=== PATIENT | male | born 1980 | race Two or more races ===

== ENCOUNTER 2023-05-28 08:51 | Inpatient (IN) | payer OTHER ==
[~2023-05-28] VITALS: Ht 188 cm; Wt 88.5 kg
--- NOTE | 2023-05-28 09:10 | NUR ---
PT CAME IN DUE TO WOUND BACK OF HEAD AFTER FALLING, LOC NOTED 1HR AGO. PUT ON BED COMFORTABLY ATTACHED TO MONITORS. AOX4, NOT IN CR DISTRESS, AMBULATORY. CHANGED TO GOWN
--- NOTE | 2023-05-28 09:15 | NUR ---
DR MARIE AT BED SIDE FOR EVAL
[2023-05-28] MEDS ORDERED: IV NS 0.9% 500 ML BAG IV ONE (09:30)
[2023-05-28] MEDS ORDERED: LIDOCAINE 1%-EPI 1:100,000 20 ML VIAL ONE (09:33)
--- NOTE | 2023-05-28 09:36 | NUR ---
ADITI COLLECTED , SENT TO LAB
--- NOTE | 2023-05-28 09:45 | NUR ---
DR MARIE AT BEDSIDE ATTENDING TO PT'S WOUND
[2023-05-28 09:52] LABS: BASOPHILS # (AUTO) 0.1 K/uL (0.0-0.2); BASOPHILS % (AUTO) 0.5 % (0.0-2.0); EOSINOPHILS % (AUTO) 2.6 % (0.0-6.0); HEMATOCRIT 42 % (39-51); HEMOGLOBIN 13.9 g/dL (13.5-17.5); LYMPHOCYTES # (AUTO) 2.8 K/uL (0.8-4.8); LYMPHOCYTES % (AUTO) 21.6 % (20.0-44.0); MEAN CORPUSCULAR HGB CONC 33 g/dl (31.0-36.0); MEAN CORPUSCULAR VOLUME 86 fL (80-96); MONOCYTES # (AUTO) 0.9 K/uL (0.1-1.30); NEUTROPHILS # (AUTO) 8.9 K/uL (1.8-8.9); NEUTROPHILS % (AUTO) 68.3 % (43.0-81.0); PLATELET COUNT (AUTO) 120 K/uL (150-450); WHITE BLOOD COUNT (AUTO) 13.1 K/uL (4.3-11.0)
--- NOTE | 2023-05-28 10:01 | NUR ---
EDI PROGRAMMER AT BEDSIDE
--- NOTE | 2023-05-28 10:05 | NUR ---
PT TO CT SCAN VIA BANNER
[2023-05-28 10:47] LABS: CALCIUM, SERUM 9.4 mg/dL (8.5-10.1); CARBON DIOXIDE 25 mmol/L (21-32); CHLORIDE 100 mmol/L (98-107); CREATININE 1.1 mg/dL (0.6-1.3); GLUCOSE 103 mg/dL (74-106); POTASSIUM 3.6 mmol/L (3.5-5.1); SODIUM SERUM 138 mmol/L (136-145); UREA NITROGEN, BLOOD 22 mg/dL (7-18)
[2023-05-28 10:53] LABS: ALANINE AMINOTRANSFERASE 27 U/L (12-78); ALBUMIN 4.1 g/dL (3.4-5.0); ALKALINE PHOSPHATASE 92 U/L (46-116); ASPARTATE AMINOTRANSFERASE 19 U/L (15-37); BILIRUBIN,DIRECT 0.2 mg/dL (0.0-0.2); BILIRUBIN,TOTAL 1.3 mg/dL (0.2-1.0); TOTAL PROTEIN, SERUM 8.1 g/dL (6.4-8.2)
--- NOTE | 2023-05-28 11:10 | NUR ---
DR LOJA AT BEDSIDE EXPLAINING RESULT OF TROPONIN
--- NOTE | 2023-05-28 11:18 | NUR ---
PT WAS ALLOWED TO GET SOMETHING FROM HIS CAR, PROMISED TO COME BACK, DR MARIE APPROVED.
--- NOTE | 2023-05-28 11:23 | NUR ---
PT BACK ON BED, AT BEDSIDE
--- NOTE | 2023-05-28 11:36 | NUR ---
MOVE SHEET SUBMITTED.
[2023-05-28] MEDS ORDERED: LORAZEPAM 1 MG TABLET ONE (11:43)
[2023-05-28] MEDS ORDERED: MELO-107 PO (11:50)
[2023-05-28] MEDS ORDERED: CARI3CAP PO (11:50)
[2023-05-28] MEDS ORDERED: HYDR-500 PO (11:50)
[2023-05-28] MEDS ORDERED: QUET100T PO (11:50)
[2023-05-28] MEDS ORDERED: CLON0.1T PO (11:50)
[2023-05-28] MEDS ORDERED: LORAZEPAM 1 MG TABLET PO ONE (12:00)
--- NOTE | 2023-05-28 13:26 | NUR ---
REPORT GIVEN TO LIA DECKER FOR JAISON
--- NOTE | 2023-05-28 13:35 | NUR ---
ECHO CARDIOGRAM TECH AT BEDSIDE
--- NOTE | 2023-05-28 14:00 | NUR ---
NEW PATIENT ARRIVED FROM ER AT 1400 VIA GURNEY, PATIENT IS AMBULATORY AT BED SIDE. PATIENT HAD A FALL IN HIS BEDROOM WHICH CAUSED HIM LACERATION ON BACK OF HIS HEAD 5 ILEANA PLACED ON THE LACERATION AREA IN THE ER, SOME SCRATCHES ON PATIENT'S SHOULDER PHOTO ALREADY TAKEN AND PLACED IN PATIENT'S CHART. WILL MONITOR THE PATIENT THROUGHOUT THE SHIFT.
[2023-05-28 16:00] VITALS: BP 119/79; TEMP 98.3
[2023-05-28] MEDS ORDERED: ENOXAPARIN SODIUM 40 MG/0.4 ML DISP.SYRIN SQ SCH (16:30)
[2023-05-28] MEDS ORDERED: ACETAMINOPHEN 325 MG TABLET PO PRN (16:30)
[2023-05-28] MEDS ORDERED: ONDANSETRON HCL/PF 4 MG/2 ML VIAL IVP PRN (16:30)
[2023-05-28] MEDS ORDERED: Z GUARD REMEDY 4 OZ OINT TP PRN (16:30)
[2023-05-28] MEDS: IV LR 1000 ML 1,000 ML IV SCH (16:34)
[2023-05-28] MEDS: METOPROLOL TARTRATE 25 MG TABLET PO SCH ×2 (16:34→20:28)
[2023-05-28] MEDS: ALPRAZOLAM 1 MG TABLET PO SCH ×2 (16:34→16:38)
--- NOTE | 2023-05-28 16:39 | NUR ---
THERE WA TWO ORDER FRO XANAX I SCANNED ONE XANAX AT 1634 AND THERE WAS ANOTHER ONE FOR 1700 O'CLOCK I CALLED PHARMACY THEY SAID NON ADMINISTER THE 1700 O'CLOCK ONE.
[2023-05-28 16:55] LABS: CHOLESTEROL 164 mg/dL (<200); HDL CHOLESTEROL 59 mg/dL (40-60); LDL 82 mg/dL (0-99); TRIGLYCERIDES 64 mg/dL (30-150)
--- NOTE | 2023-05-28 18:59 | NUR ---
RN CLOSING NOTES PATIENT IN BED AMBULATORY ON ROOM AIR O2 SAT 97%. SINUS TACHYCARDIA 113. NO SOB OR DISTRESS NOTED. PATIENT T TROPONIN LEVEL TRENDING DOWN LAST WAS CHECKED AT 1600 O'CLOCK 1261. PATIENT KEPT CLEAN AND DRY ALL DUE MEDS GIVEN. PATIENT HAS A REGULAR DIET DINNER IS ALREADY SERVED. RAC G#20 LR 100 ML/HR RUNNING IV SITE INTACT AND PATENT. PATIENT USES TOILET AMBULATORY. ALL SAFETY PRECAUTIONS IMPLEMENTED. MY RECOMMENDATION TO ASSIST THE PATIENT WHEN HE IS USES RESTROOM TO PREVENT FALLING DOWN SINCE HE HAD FALL AT HOME AND HAS A LACERATION WITH 5 ILEANA ON BACK OF HIS HEAD. WILL ENDORSE HIM TO THE CRM SPECIALIST NURSE FOR JAISON.
--- NOTE | 2023-05-28 19:20 | NUR ---
CHANNEL CEMENTER INSOLE MACHINE OPENING NOTES RECEIVED PATIENT SITTING UP IN BED, WITH AT THE BEDSIDE. AMBULATORY, NEEDS ASSISTANCE WHEN GOING TO THE BATHROOM, TO PREVENT RISK OF FALLING. ON ROOM AIR, O2 SAT 97%. WITH COMPONENT DESIGN ENGINEER CURRENT READING SINUS TACHYCARDIA 113. NO SOB OR DISTRESS NOTED. IV ACCESS AT RAC G#20 INTACT, PATENT AND INFUSING WELL, RUNNING LR 1L @100CC/HR. SAFETY PRECAUTIONS MAINTAINED: BED LOCKED IN LOWEST POSITION, RAILS UPX2, TRAY AND CALL LIGHT WITHIN EASY REACH. WILL CONTINUE TO ASSIST AND MONITOR.
[2023-05-28 20:00] VITALS: BP 108/81; TEMP 98
[2023-05-28] MEDS: HYDROCODONE/APAP 5/325MG TABLET PO PRN (20:29)
--- NOTE | 2023-05-28 20:29 | NUR ---
RN NOTES PATIENT COMPLAINED OF PAIN ALL OVER HIS HEAD AND LEGS, 10/10 PER PAIN SCALE. NORCO PRN GIVEN.
--- NOTE | 2023-05-28 21:29 | NUR ---
RN NOTES PAIN REASSESSED. 0/10 PER PAIN SCALE. MADE COMFORTABLE.
[2023-05-28] MEDS: ATORVASTATIN 10 MG TABLET PO SCH (21:48)
[2023-05-29] VITALS (14 sets, daily range): BP systolic 97–120; BP diastolic 63–87; TEMP 97.7–98.8; O2SAT 96–98
[2023-05-29] MEDS: IV LR 1000 ML 1,000 ML IV SCH (02:20)
[2023-05-29] MEDS: HYDROCODONE/APAP 5/325MG TABLET PO PRN ×4 (02:31→21:16)
--- NOTE | 2023-05-29 02:36 | NUR ---
RN NOTES PATIENT COMPLAINED OF PAIN ON HIS HEAD, 9/10 PER PAIN SCALE. NORCO PRN GIVEN.
[2023-05-29 05:48] LABS: BASOPHILS # (AUTO) 0.1 K/uL (0.0-0.2); BASOPHILS % (AUTO) 0.9 % (0.0-2.0); EOSINOPHILS % (AUTO) 5.4 % (0.0-6.0); HEMATOCRIT 40 % (39-51); HEMOGLOBIN 13.1 g/dL (13.5-17.5); LYMPHOCYTES # (AUTO) 3.8 K/uL (0.8-4.8); LYMPHOCYTES % (AUTO) 38.1 % (20.0-44.0); MEAN CORPUSCULAR HGB CONC 33 g/dl (31.0-36.0); MEAN CORPUSCULAR VOLUME 86 fL (80-96); MONOCYTES # (AUTO) 0.9 K/uL (0.1-1.30); MONOCYTES % (AUTO) 8.6 % (2.0-12.0); NEUTROPHILS # (AUTO) 4.7 K/uL (1.8-8.9); PLATELET COUNT (AUTO) 113 K/uL (150-450)
[2023-05-29 06:13] LABS: CALCIUM, SERUM 8.9 mg/dL (8.5-10.1); PHOSPHORUS 3.4 mg/dL (2.5-4.9); POTASSIUM 4.2 mmol/L (3.5-5.1)
--- NOTE | 2023-05-29 06:44 | NUR ---
CHOP SAW OPERATOR CLOSING NOTES PATIENT AWAKE IN BED, A/O X4. AMBULATORY, NEEDS ASSISTANCE WHEN GOING TO THE BATHROOM, TO PREVENT RISK OF FALLING. ON ROOM AIR, O2 SAT 97%. WITH REVENUE ANALYST, CURRENT READING SINUS RHYTHM HR 69. NO SOB OR DISTRESS NOTED. IV ACCESS AT RAC G#20 INTACT, PATENT AND INFUSING WELL, RUNNING LR 1L @100CC/HR. ALL DUE MEDS GIVEN, NEEDS ATTENDED. SAFETY PRECAUTIONS MAINTAINED: BED LOCKED IN LOWEST POSITION, RAILS UPX2, TRAY AND CALL LIGHT WITHIN EASY REACH. WILL ENDORSE TO AM SHIFT NURSE FOR JAISON.
--- NOTE | 2023-05-29 07:30 | NUR ---
NEUROLOGY TECH OPENING NOTES RECEIVED PATIENT AWAKE IN BED, A/O X4. AMBULATORY, NEEDS ASSISTANCE WHEN GOING TO THE BATHROOM, TO PREVENT RISK OF FALLING. ON ROOM AIR, O2 SAT >95%, NO SOB NOTED, RESPIRATION EVEN AND UNLABORED. WITH CAREER COACH, CURRENT READING SINUS RHYTHM HR 70'S. IV ACCESS AT RAC G#20 INTACT, PATENT AND INFUSING WELL, RUNNING LR 1L @100CC/HR. A SAFETY PRECAUTIONS MAINTAINED: BED LOCKED IN LOWEST POSITION, RAILS UPX2, TRAY AND CALL LIGHT WITHIN EASY REACH. WILL CONTINUE PLAN OF CARE.
[2023-05-29] MEDS: METOPROLOL TARTRATE 25 MG TABLET PO SCH ×2 (08:51→21:17)
[2023-05-29] MEDS: ALPRAZOLAM 1 MG TABLET PO SCH ×2 (08:51→17:27)
[2023-05-29] MEDS: ASPIRIN EC 81 MG TABLET.DR PO SCH (08:51)
--- NOTE | 2023-05-29 10:41 | NUR ---
PATIENT OUT FOR CT ANGIOGRAM OF THE HEART WITH CONTRAST
--- NOTE | 2023-05-29 10:59 | NUR ---
RECEIVED NEW ORDER FROM MAKENZIE ARIAS DC IV FLUIDS, NOTED AND CARRIED OUT.
[2023-05-29] MEDS ORDERED: NITROGLYCERIN 0.4 MG/TAB BOTTLE SL PRN (11:00)
[2023-05-29] MEDS ORDERED: METOPROLOL TARTRATE INJ 5 MG/5 ML AMPUL IVP PRN (11:00)
[2023-05-29] MEDS ORDERED: METOPROLOL TARTRATE INJ 5 MG/5 ML AMPUL ONE (11:03)
[2023-05-29] MEDS ORDERED: NITROGLYCERIN 0.4 MG/TAB BOTTLE ONE (11:04)
[2023-05-29] MEDS ORDERED: IOHEXOL-350 100 ML VIAL IV ONE (11:14)
[2023-05-29] MEDS ORDERED: CT SWABBABLE VALVE TRANS SET 1 EA INFUS.SET MC ONE (11:14)
[2023-05-29] MEDS ORDERED: IV NS 0.9% 250 ML IV ONE (11:14)
--- NOTE | 2023-05-29 12:11 | NUR ---
RECEIVED NEW ORDER FROM AISSATOU BANEGAS DNP DUPPLEX VENOUS ULTRASOUND OF BILATERAL LOWER EXTREMITY TO CHECK FOR DVT, NOTED AND CARRIED OUT
--- NOTE | 2023-05-29 12:33 | NUR ---
RECEIVED NEW ORDER FROM AISSATOU BANEGAS TO TRANSFER PATIENT TO ICU FOR CLOSE MONITORING, NOTED AND CARRIED OUT. INFORMED CHARGE NURSE SHAD AND MANAGER ENVIRONMENTAL SERVICES BAN
--- NOTE | 2023-05-29 12:40 | NUR ---
PT ARRIVED IN ICU VIA BED. BEDSIDE REPORT RECEIVED FROM NELIA CHUA RN. PT ALERT, OX4, AT BEDSIDE, VERY SUPPORTIVE. HEPARIN GTT TO BE STARTED ONCE AVAILABLE FROM PHARMACY. BILAT LOWER EXTREMITY DOPPLEERS ABOUT TO START. PT C/O HEADACHE FROM HITTING HIS HEAD WHEN HE FELL PRIOR TO ADMISSION. PT HAS 5 ILEANA IN BACK OF HEAD. PT CHECKED ON FREQUENTLY AND PRN BY NURSING STAFF.
--- NOTE | 2023-05-29 12:40 | NUR ---
TRANSFERRED PATIENT VIA ACLS TO ICU TO ROOM 259, AT THE BEDSIDE, ALL PERSONAL BELONGINGS BROUGHT WITH THE PATIENT. GAVE REPORT TO HILARIA DECKER.
[2023-05-29] MEDS ORDERED: ENOXAPARIN SODIUM 100 MG/ML DISP.SYRIN SQ STA (13:29)
[2023-05-29] MEDS: IV NS 0.9% 1,000 ML IV PRN ×2 (13:45→21:16)
[2023-05-29] MEDS: HEPARIN INFUSION/D5W 500 ML IV PRN (13:57)
[2023-05-29] MEDS ORDERED: HEPARIN SODIUM, PORCINE 5000 UNITS/1 ML VIAL IV ONE (14:00)
--- NOTE | 2023-05-29 18:38 | NUR ---
END OF SHIFT NOTE: HEPARIN GTT WAS STARTED PER MD ORDERS. NEXT PTT IS DUE AT 1999. DR MERINO WAS HERE AND TOLD PATIENT HE DOES NOT NEED TO GET AN IVC FILTER OR TRANSFER TO HIGHER LEVEL OF CARE SINCE HE IS OTHERWISE HEALTHY. ORDER GIVEN TO RESUME DIET. PER DR MERINO HE WILL TALK TO AISSATOU BANEGAS ABOUT PUTTING ORDERS IN TO TRANSITION PT OFF OF HEPARIN GTT AND ONTO A SQ BLOOD THINNER. DR MERINO ALSO INFORMED PATIENT AND HIS THAT HE WILL CONSULT A APPRENTICE TO TRY TO FIGURE OUT WHY LARGE BLOOD CLOTS ARE FORMING IN PATIENT. NO NEW ORDERS RECEIVED AT THIS TIME TO TURN OFF HEPARIN GTT. PT CHECKED ON HOURLY AND PRN BY NURSING STAFF.
[2023-05-29] MEDS: ATORVASTATIN 10 MG TABLET PO SCH (21:16)
--- NOTE | 2023-05-29 21:30 | NUR ---
ICU/RN: PTT RESULTS 88.9 TITRATED DRIP DOWN BY 200UNITS/HOUR PER PROTOCOL. WILL RECHECK PTT IN 6 HOURS.
[2023-05-30] VITALS (23 sets, daily range): BP systolic 94–127; BP diastolic 56–104; TEMP 98.2–98.5; O2SAT 95–98
[2023-05-30] MEDS: HYDROCODONE/APAP 5/325MG TABLET PO PRN ×3 (03:12→18:14)
[2023-05-30 03:54] LABS: BASOPHILS # (AUTO) 0.1 K/uL (0.0-0.2); BASOPHILS % (AUTO) 0.6 % (0.0-2.0); EOSINOPHILS % (AUTO) 4.5 % (0.0-6.0); HEMATOCRIT 39 % (39-51); HEMOGLOBIN 12.9 g/dL (13.5-17.5); LYMPHOCYTES # (AUTO) 4.3 K/uL (0.8-4.8); LYMPHOCYTES % (AUTO) 39.3 % (20.0-44.0); MEAN CORPUSCULAR HGB CONC 33 g/dl (31.0-36.0); MEAN CORPUSCULAR VOLUME 86 fL (80-96); MONOCYTES # (AUTO) 0.7 K/uL (0.1-1.30); MONOCYTES % (AUTO) 6.6 % (2.0-12.0); NEUTROPHILS # (AUTO) 5.4 K/uL (1.8-8.9); PLATELET COUNT (AUTO) 142 K/uL (150-450); RED BLOOD CELL COUNT(AUTO) 4.55 MIL/uL (4.5-6.0)
[2023-05-30 04:08] LABS: CALCIUM, SERUM 8.8 mg/dL (8.5-10.1); CREATININE 0.9 mg/dL (0.6-1.3); MAGNESIUM 1.8 mg/dL (1.8-2.4); PHOSPHORUS 4.5 mg/dL (2.5-4.9); POTASSIUM 3.4 mmol/L (3.5-5.1)
[2023-05-30] MEDS: HEPARIN INFUSION/D5W 500 ML IV PRN (05:17)
[2023-05-30] MEDS: IV NS 0.9% 1,000 ML IV PRN ×3 (05:17→21:53)
--- NOTE | 2023-05-30 07:30 | NUR ---
OPENING NOTE: REPORT RECEIVED FROM ORLIN DECKER. ORDERS AND LABS REVIEWED DURING REPORT. PER REPORT DR HELM HAS ALREADY MADE ROUNDS AND STATED PT WILL CONTINUE ON HEPARIN GTT AND NOT TRANSITION TO SQ BLOOD THINNERS AT THIS TIME. ALSO PER REPORT PT IS THERAPUTIC, NEXT PTT IS IN THE AM. RIGHT AC IV SITE IS BLEEDING AT THE SITE, IV IS NOT LEAKING. ORDER RECEIVED FOR MIDLINE INSERTION TO BE ABLE TO MAINTAIN IV SITE. PT CHECKED ON HOURLY AND PRN BY NURSING STAFF.
[2023-05-30] MEDS ORDERED: POTASSIUM CHLORIDE 20 MEQ TAB.PRT.SR PO SCH (08:00)
[2023-05-30] MEDS: ALPRAZOLAM 1 MG TABLET PO SCH ×2 (08:45→17:07)
[2023-05-30] MEDS: ASPIRIN EC 81 MG TABLET.DR PO SCH (08:46)
[2023-05-30] MEDS: METOPROLOL TARTRATE 25 MG TABLET PO SCH ×2 (08:46→21:00)
[2023-05-30] MEDS ORDERED: IOHEXOL-300 100 ML VIAL IV ONE (10:57)
[2023-05-30] MEDS ORDERED: CT SWABBABLE VALVE TRANS SET 1 EA INFUS.SET MC ONE (10:58)
--- NOTE | 2023-05-30 11:58 | NUR ---
CT OF ABD AND PELVIS WITH CONTRAST DONE WITHOUT DIFFICULTY
[2023-05-30] MEDS ORDERED: APIXABAN 2.5 MG TABLET PO ONE (16:30)
[2023-05-30] MEDS ORDERED: APIXABAN 5 MG TABLET PO SCH ×2 (17:00)
--- NOTE | 2023-05-30 18:57 | NUR ---
END OF SHIFT NOTE: HEPARIN GTT WAS DC'D 1 HOUR AFTER ELIQUIS STARTED PER MD ORDERS. PT HAD CT ABD/PELVIS WITH CONTRAST TODAY PER MD ORDERS. PER DR AISSATOU BANEGAS PT WILL POSSIBLY BE DISCHARGED ON THURSDAY. CONSULT FOR HEMATOLOGY STILL PENDING. PT CHECKED ON HOURLY AND PRN BY NURSING STAFF.
[2023-05-30] MEDS: ATORVASTATIN 10 MG TABLET PO SCH (21:06)
[2023-05-31] VITALS (23 sets, daily range): BP systolic 96–129; BP diastolic 69–101; TEMP 98.1–98.8; O2SAT 93–100
[2023-05-31] MEDS: HYDROCODONE/APAP 5/325MG TABLET PO PRN ×4 (00:17→18:10)
[2023-05-31] MEDS: IV NS 0.9% 1,000 ML IV PRN ×3 (05:43→22:04)
[2023-05-31 06:10] LABS: BASOPHILS # (AUTO) 0.1 K/uL (0.0-0.2); BASOPHILS % (AUTO) 0.6 % (0.0-2.0); EOSINOPHILS % (AUTO) 4.4 % (0.0-6.0); HEMATOCRIT 36 % (39-51); HEMOGLOBIN 12.1 g/dL (13.5-17.5); LYMPHOCYTES # (AUTO) 2.5 K/uL (0.8-4.8); LYMPHOCYTES % (AUTO) 27.4 % (20.0-44.0); MEAN CORPUSCULAR HGB CONC 33 g/dl (31.0-36.0); MEAN CORPUSCULAR VOLUME 85 fL (80-96); MONOCYTES # (AUTO) 0.8 K/uL (0.1-1.30); MONOCYTES % (AUTO) 8.4 % (2.0-12.0); NEUTROPHILS # (AUTO) 5.5 K/uL (1.8-8.9); NEUTROPHILS % (AUTO) 59.2 % (43.0-81.0); PLATELET COUNT (AUTO) 168 K/uL (150-450); RED BLOOD CELL COUNT(AUTO) 4.26 MIL/uL (4.5-6.0); WHITE BLOOD COUNT (AUTO) 9.3 K/uL (4.3-11.0)
[2023-05-31 06:21] LABS: CALCIUM, SERUM 8.4 mg/dL (8.5-10.1); CREATININE 0.8 mg/dL (0.6-1.3); MAGNESIUM 1.8 mg/dL (1.8-2.4); POTASSIUM 3.4 mmol/L (3.5-5.1)
[2023-05-31 06:37] LABS: THYROID STIMULATING HORMONE 1.432 uIU/mL (0.358-3.74)
[2023-05-31 06:44] LABS: C-REACTIVE PROTEIN 1.4 mg/dL (0.0-0.9)
--- NOTE | 2023-05-31 07:30 | NUR ---
OPENING NOTE: REPORT RECEIVED FROM ORLIN DECKER. ORDERS AND LABS REVIEWED DURING REPORT. PT IS ALERT OX3. DENIES ANY SOB OR CHEST PAIN. NO BLEEDING NOTED AT THIS TIME, WILL CONTINUE TO MONITOR. PT CHECKED ON HOURLY AND PRN BY NURSING STAFF.
[2023-05-31] MEDS ORDERED: POTASSIUM CHLORIDE 20 MEQ TAB.PRT.SR PO SCH (08:00)
[2023-05-31] MEDS ORDERED: POTASSIUM CHLORIDE 20 MEQ TAB.PRT.SR PO ONE (09:30)
[2023-05-31] MEDS: ALPRAZOLAM 1 MG TABLET PO SCH ×2 (09:51→18:10)
[2023-05-31] MEDS: ASPIRIN EC 81 MG TABLET.DR PO SCH (09:52)
[2023-05-31] MEDS: METOPROLOL TARTRATE 25 MG TABLET PO SCH ×2 (09:53→21:00)
[2023-05-31] MEDS: APIXABAN 5 MG TABLET PO SCH ×2 (09:53→18:11)
[2023-05-31] MEDS: ATORVASTATIN 10 MG TABLET PO SCH (21:04)
[2023-06-01] VITALS (13 sets, daily range): BP systolic 102–129; BP diastolic 66–98; TEMP 98.1–98.6; O2SAT 93–99
[2023-06-01] MEDS: HYDROCODONE/APAP 5/325MG TABLET PO PRN ×2 (00:10→06:10)
[2023-06-01 04:44] LABS: BASOPHILS # (AUTO) 0.1 K/uL (0.0-0.2); BASOPHILS % (AUTO) 0.7 % (0.0-2.0); HEMATOCRIT 35 % (39-51); HEMOGLOBIN 11.9 g/dL (13.5-17.5); LYMPHOCYTES # (AUTO) 3.1 K/uL (0.8-4.8); LYMPHOCYTES % (AUTO) 31.8 % (20.0-44.0); MEAN CORPUSCULAR HGB CONC 34 g/dl (31.0-36.0); MEAN CORPUSCULAR VOLUME 86 fL (80-96); MONOCYTES # (AUTO) 0.8 K/uL (0.1-1.30); MONOCYTES % (AUTO) 8.3 % (2.0-12.0); NEUTROPHILS # (AUTO) 5.2 K/uL (1.8-8.9); NEUTROPHILS % (AUTO) 54.2 % (43.0-81.0); PLATELET COUNT (AUTO) 185 K/uL (150-450); RED BLOOD CELL COUNT(AUTO) 4.12 MIL/uL (4.5-6.0); WHITE BLOOD COUNT (AUTO) 9.7 K/uL (4.3-11.0)
[2023-06-01 05:01] LABS: CALCIUM, SERUM 8.8 mg/dL (8.5-10.1); CREATININE 0.7 mg/dL (0.6-1.3); PHOSPHORUS 4.3 mg/dL (2.5-4.9); POTASSIUM 3.7 mmol/L (3.5-5.1)
[2023-06-01] MEDS: IV NS 0.9% 1,000 ML IV PRN (06:04)
[2023-06-01 07:06] LABS: AFP, TUMOR MARKER <1.8 ng/mL (0.0-6.9)
--- NOTE | 2023-06-01 07:10 | NUR ---
RN OPENING NOTE PATIENT AWAKE IN HIS BED, ON ROOM AIR. NO SIGNS OF DISTRESS OR SOB NOTED. PATIENT IS OFF HEPARIN DRIP PER MOBILE PAINT SPECIALIST REPORT AND HE IS ON ELIQUIS TABLET NOW. PATIENT HAS A DISCHARGE PLAN BUT NO ORDER YET. WILL MONITOR THE PATIENT CLOSELY THROUGHOUT THE SHIFT.
[2023-06-01] MEDS: ASPIRIN EC 81 MG TABLET.DR PO SCH (08:11)
[2023-06-01] MEDS: ALPRAZOLAM 1 MG TABLET PO SCH (08:11)
[2023-06-01] MEDS: METOPROLOL TARTRATE 25 MG TABLET PO SCH (08:12)
[2023-06-01] MEDS: APIXABAN 5 MG TABLET PO SCH (08:13)
[2023-06-01] MEDS ORDERED: APIX5TAB PO (11:14)
--- NOTE | 2023-06-01 12:00 | NUR ---
PATIENT DISCHARGED HOME WITH HIS , PATIENT ROOM AIR AMBULATORY WENT HOME WITH PRIVATE CAR. RIGHT UPPER MIDLINE REMOVED NO BLEEDING NOTED, SECURED WITH GAUZE AND TAPE. ALL DC INSTRUCTION GIVEN, ALL DOCTOR FOLLOW UP INSTRUCTIONS PRINTED AND GIVEN TO THE PATIENT ALL EXPLAINED TO THE ALSO. THEY BOTH VERBALIZED UNDERSTANDING. ALL NEW MEDS, STOP MEDS, CONTINUE MEDS INSTRUCTIONS GIVEN. PATIENT INSTRUCTED ON RETURNING TO ER ON 06/12/2023 TO REMOVE THE 5 ILEANA FROM BACK OF HIS HEAD, WHICH WAS CAUSED BY FALLING DOWN AND MADE AN LACERATION ON BACK OF HIS HEAD. ILEANA PLACED ON 05/28/2023.
[2023-06-02 08:07] LABS: *ANA ANTI-CENTROMERE B AB <0.2 AI (0.0-0.9); *ANA ANTI-DNA(DS) AB, QN <1 IU/mL (0-9); *ANA ANTI-JO-1 <0.2 AI (0.0-0.9); *ANA ANTICHROMATIN ANTIBODY <0.2 AI (0.0-0.9); *ANA RNP ANTIBODIES <0.2 AI (0.0-0.9); *ANA SJOGREN'S ANTI-SS-A <0.2 AI (0.0-0.9); *ANA SJOGREN'S ANTI-SS-B <0.2 AI (0.0-0.9); *ANAANTI-SCLERODERMA-70 AB <0.2 AI (0.0-0.9); *ANASMITH AB <0.2 AI (0.0-0.9); IMMUNOGLOBULIN A, SERUM 406 mg/dL (90-386); IMMUNOGLOBULIN G, SERUM 671 mg/dL (603-1613); IMMUNOGLOBULIN M, SERUM 70 mg/dL (20-172)
[2023-06-02 12:07] LABS: *SPE A/G RATIO 1.3 (0.7-1.7); *SPE ALPHA-1-GLOBULIN 0.2 g/dL (0.0-0.4); *SPE ALPHA-2-GLOBULIN 0.7 g/dL (0.4-1.0); *SPE M-SPIKE 0.4 g/dL (Not Observed)
[2023-06-02 20:06] LABS: *ANTITHROMBIN III AG 107 % (72-124); *DILUTE PROTHROMBIN TIME (dPT) 39.6 sec (0.0-47.6); *THROMBIN TIME 18.2 sec (0.0-23.0); *dPT CONFIRM RATIO 1.07 Ratio (0.00-1.34); *dRVVT 41.5 sec (0.0-47.0); FACTOR VIII ACTIVITY 65 % (56-140)
[2023-06-03 00:07] LABS: *CARD ANTI-CARDIOLIPIN AB IgA <9 APL U/mL (0-11); *CARD ANTI-CARDIOLIPIN AB IgG <9 GPL U/mL (0-14); *CARD ANTI-CARDIOLIPIN AB IgM <9 MPL U/mL (0-12)
== END 2023-06-01 12:51 | disposition home or self-care (01) | DRG 134 ==
LOC: ER 09:01 → TELE1 13:18 → ICU 05-29 12:39
PROVIDERS: ADMIT Nurse Practitioner Acute Care; ATTEND Nurse Practitioner Acute Care
DX: I26.92 Saddle embolus of pulmonary artery without acute cor pulmonale (principal); I21.A1 Myocardial infarction type 2; D68.69 Other thrombophilia; D69.6 Thrombocytopenia, unspecified; S09.90XA Unspecified injury of head, initial encounter; I95.9 Hypotension, unspecified; I82.412 Acute embolism and thrombosis of left femoral vein; D64.9 Anemia, unspecified; E87.6 Hypokalemia; F32.A Depression, unspecified; F41.9 Anxiety disorder, unspecified; I25.10 Atherosclerotic heart disease of native coronary artery without angina pectoris; Z79.01 Long term (current) use of anticoagulants; Z86.711 Personal history of pulmonary embolism; Z86.718 Personal history of other venous thrombosis and embolism; R55 Syncope and collapse; I82.432 Acute embolism and thrombosis of left popliteal vein; X58.XXXA Exposure to other specified factors, initial encounter; Y93.9 Activity, unspecified; Y92.009 Unspecified place in unspecified non-institutional (private) residence as the place of occurrence of the external cause; Z80.9 Family history of malignant neoplasm, unspecified
CPT/HCPCS: 36415; 70450-TC; 71045-TC; 75574; 80048-TC; 80061-TC; 80076-TC; 81240; 81241; 82105; 82378; 82607-TC; 82728-TC; 82784; 83090; 83540-TC; 83735-TC; 84100-TC; 84155; 84165; 84443-TC; 84484-TC; 84702-TC; 85025-TC; 85045-TC; 85240; 85300; 85301; 85303; 85385-TC; 85613; 85670; 85705; 85730-TC; 85732; 86140-TC; 86147; 86225; 86235; 86301; 86334; 86431-TC; 86706; 86803; 87340; 87806; 93307-TC; 93970-TC; A4223; A6403; G0378; J1644; J1650; J3490; J7030; J7050; J7120; Q9967

== ENCOUNTER 2025-07-27 22:21 | Emergency (ER) | payer SELFPAY ==
[~2025-07-27] VITALS: Ht 152.4 cm; Wt 81.6 kg
[~2025-07-27 22:21] MED LIST: APIX5TAB PO; CARI3CAP PO; QUET100T PO
[2025-07-27 23:52] VITALS: BP 118/82; TEMP 98.3; O2SAT 96
== END 2025-07-27 23:52 | disposition home or self-care (01) ==
LOC: ER 22:24
DX: S61.411A Laceration without foreign body of right hand, initial encounter (principal); F17.290 Nicotine dependence, other tobacco product, uncomplicated; F32.A Depression, unspecified; F41.9 Anxiety disorder, unspecified; Z79.01 Long term (current) use of anticoagulants; Z79.899 Other long term (current) drug therapy; Z88.7 Allergy status to serum and vaccine; W26.8XXA Contact with other sharp object(s), not elsewhere classified, initial encounter; Y93.89 Activity, other specified; Y92.89 Other specified places as the place of occurrence of the external cause; Y99.8 Other external cause status
CPT/HCPCS: 73130-TC